=== PATIENT | male | born 1995 | race African-American/Black ===

== ENCOUNTER 2022-05-17 11:10 | Outpatient (RCR) | payer OTHER ==
[2022-05-17] MEDS ORDERED: LIDOCAINE VISC 2% SOLN 15 ML UDC ONE (12:35)
[2022-05-17] MEDS ORDERED: MINERAL OIL/PETROLAT/GLYCERI 6OZ BTL ONE (12:35)
[2022-05-17 13:39] LABS: HEMATOCRIT 35.5 % (38.2-49.6); HEMOGLOBIN 10.7 g/dL (14.0-18.0); MEAN CORPUSCULAR HGB CONC 30.1 g/dL (31-35); MEAN CORPUSCULAR VOLUME 79.8 fL (81-99); PLATELET COUNT 294 x10e3/uL (140-360); RED BLOOD COUNT 4.45 x10e6/uL (4.3-5.7); RED CELL DISTRIBUTION WIDTH 18.1 % (11.7-14.4)
[2022-05-17 14:00] LABS: ALBUMIN 3.2 g/dL (3.5-5.0); ALBUMIN/GLOBULIN RATIO 0.6 (0.8-2.0); ANION GAP 11.8 mmol/L (8-16); CALCIUM 9.1 mg/dL (8.4-10.2); CREATININE, SERUM 0.71 mg/dL (0.72-1.25); POTASSIUM 3.8 mmol/L (3.5-5.1)
[2022-05-17 15:14] LABS: EOSINOPHILS % (MANUAL) 3 % (0-7); LYMPHOCYTES % (MANUAL) 21 % (19-48); MONOCYTES % (MANUAL) 4 % (3.4-9.0); NEUTROPHILS % (MANUAL) 72 % (40-74)
[2022-05-17 15:15] LABS: PLATELET ESTIMATE ADEQUATE; PLATELET MORPHOLOGY COMMENT NORMAL; RBC MORPHOLOGY COMMENT NORMAL
== END 2022-06-02 ==
LOC: WCC 11:10
PROVIDERS: ATTEND Internal Medicine Infectious Disease
DX: S91.104A Unspecified open wound of right lesser toe(s) without damage to nail, initial encounter (principal); S91.201A Unspecified open wound of right great toe with damage to nail, initial encounter; S91.204A Unspecified open wound of right lesser toe(s) with damage to nail, initial encounter; S91.301A Unspecified open wound, right foot, initial encounter; S91.309A Unspecified open wound, unspecified foot, initial encounter; R60.0 Localized edema; X58.XXXA Exposure to other specified factors, initial encounter
CPT/HCPCS: 36415; 80053; 84134; 85007; 85027

== ENCOUNTER → 2022-05-31 | Outpatient (CLI) | payer OTHER ==
[~2022-05-31] MED LIST: GADOBENATE DIMEGLUMINE 1 ML IV ONE
== END ==
LOC: MRI 10:46
PROVIDERS: ATTEND Internal Medicine Infectious Disease
DX: S91.301A Unspecified open wound, right foot, initial encounter (principal)

== ENCOUNTER → 2022-08-03 | Outpatient (RCR) | payer OTHER ==
[2022-07-06 15:31] LABS: BASOPHILS % 0.6 % (0.0-1.0); EOSINOPHILS # (AUTO) 0.1 (0.0-0.4); EOSINOPHILS % 2.7 % (0.0-6.0); HEMATOCRIT 31.9 % (38.2-49.6); HEMOGLOBIN 9.6 g/dL (14.0-18.0); LYMPHOCYTES # (AUTO) 1.7 (1.0-3.2); LYMPHOCYTES % 33.6 % (18.0-39.1); MEAN CORPUSCULAR HEMOGLOBIN 23.6 pg (28-32); MEAN CORPUSCULAR HGB CONC 30.1 g/dL (31-35); MEAN CORPUSCULAR VOLUME 78.6 fL (81-99); MONOCYTES # (AUTO) 0.4 (0.2-0.8); MONOCYTES % 8.5 % (4.4-11.3); NEUTROPHILS # (AUTO) 2.8 (2.1-6.9); NEUTROPHILS % 54.4 % (38.7-80.0); PLATELET COUNT 308 x10e3/uL (140-360); RED BLOOD COUNT 4.06 x10e6/uL (4.3-5.7); RED CELL DISTRIBUTION WIDTH 17.7 % (11.7-14.4)
[2022-07-06 15:46] LABS: CREATININE, SERUM 0.7 mg/dL (0.72-1.25)
[2022-07-13 11:12] LABS: BASOPHILS % 0.7 % (0.0-1.0); EOSINOPHILS # (AUTO) 0.2 (0.0-0.4); EOSINOPHILS % 3.6 % (0.0-6.0); HEMATOCRIT 32.7 % (38.2-49.6); HEMOGLOBIN 9.5 g/dL (14.0-18.0); LYMPHOCYTES # (AUTO) 2.4 (1.0-3.2); LYMPHOCYTES % 40.6 % (18.0-39.1); MEAN CORPUSCULAR HEMOGLOBIN 23.3 pg (28-32); MEAN CORPUSCULAR HGB CONC 29.1 g/dL (31-35); MEAN CORPUSCULAR VOLUME 80.1 fL (81-99); MONOCYTES # (AUTO) 0.4 (0.2-0.8); MONOCYTES % 7.4 % (4.4-11.3); NEUTROPHILS # (AUTO) 2.8 (2.1-6.9); NEUTROPHILS % 47.5 % (38.7-80.0); PLATELET COUNT 283 x10e3/uL (140-360); RED BLOOD COUNT 4.08 x10e6/uL (4.3-5.7); RED CELL DISTRIBUTION WIDTH 17.7 % (11.7-14.4)
[2022-07-13 11:38] LABS: CREATININE, SERUM 0.78 mg/dL (0.72-1.25)
[2022-07-23 13:05] LABS: BASOPHILS % 0.5 % (0.0-1.0); EOSINOPHILS # (AUTO) 0.2 (0.0-0.4); EOSINOPHILS % 3.5 % (0.0-6.0); HEMATOCRIT 32.6 % (38.2-49.6); HEMOGLOBIN 9.6 g/dL (14.0-18.0); LYMPHOCYTES # (AUTO) 1.8 (1.0-3.2); LYMPHOCYTES % 30.7 % (18.0-39.1); MEAN CORPUSCULAR HEMOGLOBIN 23.5 pg (28-32); MEAN CORPUSCULAR HGB CONC 29.4 g/dL (31-35); MEAN CORPUSCULAR VOLUME 79.9 fL (81-99); MONOCYTES # (AUTO) 0.4 (0.2-0.8); MONOCYTES % 7.3 % (4.4-11.3); NEUTROPHILS # (AUTO) 3.3 (2.1-6.9); NEUTROPHILS % 57.8 % (38.7-80.0); PLATELET COUNT 256 x10e3/uL (140-360); RED BLOOD COUNT 4.08 x10e6/uL (4.3-5.7); RED CELL DISTRIBUTION WIDTH 17.6 % (11.7-14.4)
[2022-07-23 13:18] LABS: CREATININE, SERUM 0.73 mg/dL (0.72-1.25)
[~2022-08-03] MED LIST changes: +ELIQUIS5 MG PO; -GADOBENATE DIMEGLUMINE 1 ML IV ONE; +HYDROCODON-ACE1 EAC8 PO; +LIDOCAINE VISC 2% SOLN 15 ML UDC ONE
[2022-08-03 11:39] LABS: BASOPHILS % 0.7 % (0.0-1.0); EOSINOPHILS # (AUTO) 0.2 (0.0-0.4); EOSINOPHILS % 3.4 % (0.0-6.0); HEMATOCRIT 33.6 % (38.2-49.6); HEMOGLOBIN 10.2 g/dL (14.0-18.0); LYMPHOCYTES # (AUTO) 2.2 (1.0-3.2); LYMPHOCYTES % 39.4 % (18.0-39.1); MEAN CORPUSCULAR HEMOGLOBIN 23.7 pg (28-32); MEAN CORPUSCULAR HGB CONC 30.4 g/dL (31-35); MEAN CORPUSCULAR VOLUME 78.1 fL (81-99); MONOCYTES # (AUTO) 0.5 (0.2-0.8); MONOCYTES % 8.2 % (4.4-11.3); NEUTROPHILS # (AUTO) 2.7 (2.1-6.9); NEUTROPHILS % 48.1 % (38.7-80.0); PLATELET COUNT 224 x10e3/uL (140-360); RED CELL DISTRIBUTION WIDTH 18.1 % (11.7-14.4)
[2022-08-03 11:58] LABS: CREATININE, SERUM 0.66 mg/dL (0.72-1.25)
== END ==
LOC: WCC 07-06 14:27
PROVIDERS: ATTEND Internal Medicine Infectious Disease
DX: L89.309 Pressure ulcer of unspecified buttock, unspecified stage (principal); S91.301A Unspecified open wound, right foot, initial encounter; S91.309A Unspecified open wound, unspecified foot, initial encounter; R60.0 Localized edema; X58.XXXA Exposure to other specified factors, initial encounter
CPT/HCPCS: 36415; 82550; 82565; 84520; 85025; 87071; 87075; 87186; 87205

== ENCOUNTER → 2022-08-31 | Outpatient (RCR) | payer OTHER ==
[~2022-08-31] MED LIST changes: +COLLAGENASE OINTMENT 30 GM TUBE ONE
== END ==
LOC: WCC 08-06 11:01
PROVIDERS: ATTEND Internal Medicine Infectious Disease
DX: L89.309 Pressure ulcer of unspecified buttock, unspecified stage (principal); S91.301A Unspecified open wound, right foot, initial encounter; S91.309A Unspecified open wound, unspecified foot, initial encounter; S91.309S Unspecified open wound, unspecified foot, sequela; R60.0 Localized edema; B96.5 Pseudomonas (aeruginosa) (mallei) (pseudomallei) as the cause of diseases classified elsewhere; X58.XXXS Exposure to other specified factors, sequela

== ENCOUNTER 2022-10-19 08:45 | Outpatient (RCR) | payer OTHER ==
[~2022-10-19 08:45] MED LIST changes: +CADEXOMER IODINE 30 GM TUBE ONE; -COLLAGENASE OINTMENT 30 GM TUBE ONE; -LIDOCAINE VISC 2% SOLN 15 ML UDC ONE; +MINERAL OIL/PETROLAT/GLYCERI 6OZ BTL ONE; +MUPIROCIN 2% OINT 22 GM TUBE ONE
== END 2022-10-31 ==
LOC: WCC 08:45
PROVIDERS: ATTEND Podiatrist Foot & Ankle Surgery
DX: T81.89XD Other complications of procedures, not elsewhere classified, subsequent encounter (principal); S91.301A Unspecified open wound, right foot, initial encounter; B95.5 Unspecified streptococcus as the cause of diseases classified elsewhere; B96.5 Pseudomonas (aeruginosa) (mallei) (pseudomallei) as the cause of diseases classified elsewhere
CPT/HCPCS: 15275; 15276; 99213; 99214 ×2; Q4121

== ENCOUNTER 2022-11-08 12:33 | Emergency (ER) | payer OTHER ==
[~2022-11-08] VITALS: Ht 175.3 cm; Wt 70.3 kg
[~2022-11-08 12:33] MED LIST changes: -CADEXOMER IODINE 30 GM TUBE ONE; -MINERAL OIL/PETROLAT/GLYCERI 6OZ BTL ONE; -MUPIROCIN 2% OINT 22 GM TUBE ONE
[2022-11-08 16:12] VITALS: BP 105/69; PULSE 81; RESP 16; TEMP 98; O2SAT 99
== END 2022-11-08 15:30 | disposition home or self-care (01) ==
LOC: ER 12:52
DX: Z45.2 Encounter for adjustment and management of vascular access device (principal); Z85.89 Personal history of malignant neoplasm of other organs and systems
CPT/HCPCS: 99282

== ENCOUNTER 2022-11-30 12:40 | Outpatient (RCR) | payer OTHER ==
[~2022-11-30 12:40] MED LIST changes: +MINERAL OIL/PETROLAT/GLYCERI 6OZ BTL ONE
== END 2022-12-01 ==
LOC: WCC 12:40
PROVIDERS: ATTEND Internal Medicine Infectious Disease
DX: S91.301A Unspecified open wound, right foot, initial encounter (principal); T81.89XD Other complications of procedures, not elsewhere classified, subsequent encounter
CPT/HCPCS: 11042; 15275; 15276; 99212; 99213 ×4; Q4121

== ENCOUNTER 2022-12-21 08:40 | Outpatient (RCR) | payer OTHER ==
[~2022-12-21 08:40] MED LIST changes: -MINERAL OIL/PETROLAT/GLYCERI 6OZ BTL ONE
== END 2022-12-31 ==
LOC: WCC 08:40
PROVIDERS: ATTEND Internal Medicine Infectious Disease
DX: T81.89XD Other complications of procedures, not elsewhere classified, subsequent encounter (principal); S91.301A Unspecified open wound, right foot, initial encounter; R60.0 Localized edema